=== PATIENT | female | born 1980 ===

== ENCOUNTER 2017-03-29 22:15 | Emergency (ER) | payer SELFPAY ==
[2017-03-29 22:38] VITALS: BP 114/76; PULSE 77; RESP 20; TEMP 98.5; O2SAT 100
--- NOTE | 2017-03-29 23:52 | C.PDOC ---
History Of Present Illness Contrary to triage, 36 year old female presents to the ER with a complaint of a frontal headache that began 1 hour [employer] S[employer]. Patient states the pain is focused around her eyes and radiates to the right ear causing an ear fullness and blurry vision. Denies fever, photophobia, URI symptoms, or recent injury. Time Seen by Provider: 03/29/17 22:43 Chief Complaint (Nursing): Cough, Cold, Congestion History Per: Patient History/Exam Limitations: no limitations Onset/Duration Of Symptoms: Hrs Current Symptoms Are (Timing): Still Present Recent travel outside of the [place]: No Past Medical History Reviewed: Historical Data, Nursing Documentation, Vital Signs Vital Signs: Last Vital Signs Temp 98.5 F 03/29/17 22:35 Pulse 77 03/29/17 22:35 Resp 20 03/29/17 23:58 BP 114/76 03/29/17 22:35 Pulse Ox 100 03/29/17 23:52 - Medical History PMH: No Chronic Diseases Surgical History: No Surg Hx Family History: States: Unknown Family Hx - Social History Hx Alcohol Use: No Hx Substance Use: No - Immunization History Hx Tetanus Toxoid Vaccination: No Hx Influenza Vaccination: No Hx Pneumococcal Vaccination: No Review Of Systems Constitutional: Negative for: Fever, Chills Eyes: Positive for: Vision Change ENT: Positive for: Other (Right ear fullness). Negative for: Ear Pain, Nose Congestion, Throat Pain Respiratory: Negative for: Cough Neurological: Positive for: Headache Physical Exam - Physical Exam Appears: Non-toxic, No Acute Distress Skin: Normal Color, Warm, Dry Head: Atraumatic, Normacephalic Eye(s): bilateral: Normal Inspection, PERRL, EOMI Ear(s): Bilateral: Normal Oral Mucosa: Moist Neck: Normal, Supple Chest: Symmetrical, No Tenderness Cardiovascular: Rhythm Regular Respiratory: Normal Breath Sounds, No Rales, No Rhonchi, No Wheezing Neurological/Psych: Oriented x3, Normal Speech ED Course And Treatment O2 Sat by Pulse Oximetry: 100 (Room air) Pulse Ox Interpretation: Normal Progress Note: Reglan administered. POC was positive for . On reevaluation, patient states she feels better, explained to her that her symptoms were likely secondary to her . Also explained that further diagnostic studies cannot be done at this time as no MRIs are available at this hour and CT exams are detrimental to the . Patient given Rx for meds, including meds, and instructed to follow up with CLIMATOLOGY TEACHER, or return to ER for any worsening symptoms. Disposition - Disposition Disposition: HOME/ ROUTINE Disposition Time: 23:50 Condition: STABLE Additional Instructions: Follow up with your PMD and OBGYN within 1-2 days. Return to ED if feel worse. Prescriptions: Vit Calc,Iron,Folic [ Vitamins] 1 each PO DAILY #30 tablet Metoclopramide [Reglan] 1 tab PO TID #25 tab Instructions: (ED), General Headache (ED) Forms: [employer] ([place]ian) Print Language: [place] - Clinical Impression Clinical Impression: Headache in - PA / MEDICAL LIAISON / Resident Statement MD/DO has reviewed & agrees with the documentation as recorded. - Scribe Statement The provider has reviewed the documentation as recorded by the Scribe Rupesh Lewis All medical record entries made by the Scribe were at my direction and personally dictated by me. I have reviewed the chart and agree that the record accurately reflects my personal performance of the history, physical exam, medical decision making, and the department course for this patient. I have also personally directed, reviewed, and agree with the discharge instructions and disposition.
== END 2017-03-29 23:58 | disposition home or self-care (01) ==
LOC: C.ER 22:15
DX: O26.891 Other specified pregnancy related conditions, first trimester (principal); R51 Headache; Z3A.00 Weeks of gestation of pregnancy not specified